=== PATIENT | male | born 2000 | race Caucasian/White ===

== ENCOUNTER 2021-02-18 08:30 | Outpatient (CLI) | payer OTHER | END 2021-02-18 08:31 | disposition home or self-care (01) | LOC: CSHCT 08:30 | PROVIDERS: ATTEND Otolaryngology | DX: S09.20XA Traumatic rupture of unspecified ear drum, initial encounter (principal); H90.8 Mixed conductive and sensorineural hearing loss, unspecified; H74.92 Unspecified disorder of left middle ear and mastoid; S09.22XA Traumatic rupture of left ear drum, initial encounter; H73.892 Other specified disorders of tympanic membrane, left ear | CPT/HCPCS: 70480 ==

== ENCOUNTER 2021-03-20 15:12 | Outpatient (CLI) | payer OTHER ==
[2021-03-21 12:15] LABS: SARS-CoV-2 PCR by NAA Not Detected (NotDetected)
== END 2021-03-20 15:13 | disposition home or self-care (01) ==
LOC: CSHLAB 15:12
PROVIDERS: ATTEND Otolaryngology Plastic Surgery within the Head & Neck
DX: Z20.822 Contact with and (suspected) exposure to COVID-19 (principal); J35.2 Hypertrophy of adenoids; S09.20XA Traumatic rupture of unspecified ear drum, initial encounter; H90.71 Mixed conductive and sensorineural hearing loss, unilateral, right ear, with unrestricted hearing on the contralateral side
CPT/HCPCS: U0003; U0005

== ENCOUNTER 2021-03-25 08:11 | Day surgery (SDC) | payer OTHER ==
[2021-03-21 13:35] VITALS: BMI 40.1
[2021-03-25] MEDS ORDERED: Lidocaine 1% MPF 2 ML VIAL ONE (09:33)
[2021-03-25] MEDS ORDERED: PROPOFOL 20 ML ONE ×2 (12:33→13:14)
[2021-03-25] MEDS ORDERED: Ondansetron PF 4 MG/2 ML Vial ONE (12:34)
[2021-03-25] MEDS ORDERED: Lidocaine 4% PF 5 ML AMP ONE (12:34)
[2021-03-25] MEDS ORDERED: Lidocaine 2% PF 5 ML VIAL ONE (12:34)
[2021-03-25] MEDS ORDERED: Rocuronium Bromide 10 MG/ML (10ML VIAL) ONE (12:34)
[2021-03-25] MEDS ORDERED: Fentanyl 100 MCG/2 ML VIAL ONE ×3 (12:34→15:13)
[2021-03-25] MEDS ORDERED: Dexamethasone 20 MG/5 ML VIAL ONE (12:34)
[2021-03-25] MEDS ORDERED: oFLOXacin 0.3% Opth 5 ML BOT ONE (12:40)
[2021-03-25] MEDS ORDERED: Mupirocin 2% Ointment 22 GM Tube ONE (12:40)
[2021-03-25] MEDS ORDERED: EPINEPHrine 1 MG/ML AMP ONE (12:40)
[2021-03-25] MEDS ORDERED: Succinylcholine 200 MG/10 ml SYRINGE FS ONE (12:45)
[2021-03-25] MEDS ORDERED: CEFAZOLIN 1 GM VIAL ONE (12:50)
== END 2021-03-25 16:35 | disposition home or self-care (01) ==
LOC: CSHSDC 08:11
PROVIDERS: ATTEND Otolaryngology Plastic Surgery within the Head & Neck
PROC: 0CTQ0ZZ Resection of Adenoids, Open Approach (ICD-10-PCS; principal; 2021-03-25)
DX: S09.22XA Traumatic rupture of left ear drum, initial encounter (principal); H90.72 Mixed conductive and sensorineural hearing loss, unilateral, left ear, with unrestricted hearing on the contralateral side; J35.2 Hypertrophy of adenoids
CPT/HCPCS: C1713; J0171; J0690; J1100; J2001; J2405; J2704; J3010

== ENCOUNTER 2021-10-03 10:21 | Outpatient (CLI) | payer OTHER | END 2021-10-03 10:22 | disposition home or self-care (01) | LOC: CSHLAB 10:21 | PROVIDERS: ATTEND Otolaryngology Plastic Surgery within the Head & Neck | DX: U07.1 COVID-19 (principal); H72.91 Unspecified perforation of tympanic membrane, right ear | CPT/HCPCS: U0003; U0005 ==

== ENCOUNTER 2021-11-18 07:37 | Day surgery (SDC) | payer OTHER ==
[2021-10-02 11:22] VITALS: BMI 41.3
[2021-11-18] MEDS ORDERED: Lidocaine 1% MPF 2 ML VIAL ONE (08:30)
[2021-11-18] MEDS ORDERED: Dexmedetomidine 200 MCG/2 ML VIAL ONE (09:26)
[2021-11-18] MEDS ORDERED: PROPOFOL 60 ML ONE (09:27)
[2021-11-18] MEDS ORDERED: Midazolam HCl 2 mg/2 ml Vial ONE (09:27)
[2021-11-18] MEDS ORDERED: Fentanyl 250 MCG/5 ML VIAL ONE (09:27)
[2021-11-18] MEDS ORDERED: Mupirocin 2% Ointment 22 GM Tube ONE (09:28)
[2021-11-18] MEDS ORDERED: Ondansetron PF 4 MG/2 ML Vial ONE ×2 (09:28→10:06)
[2021-11-18] MEDS ORDERED: EPINEPHrine 1 MG/ML AMP ONE (09:28)
[2021-11-18] MEDS ORDERED: Dexamethasone 20 MG/5 ML VIAL ONE (09:28)
[2021-11-18] MEDS ORDERED: Lidocaine 1% PF 5 ML VIAL ONE (09:28)
[2021-11-18] MEDS ORDERED: oFLOXacin 0.3% Opth 5 ML BOT ONE ×2 (09:28→10:35)
[2021-11-18] MEDS ORDERED: Rocuronium Bromide 10 MG/ML (10ML VIAL) ONE (09:28)
[2021-11-18] MEDS ORDERED: CEFAZOLIN 1 GM VIAL ONE (09:28)
[2021-11-18] MEDS ORDERED: PROPOFOL 20 ML ONE (09:31)
[2021-11-18] MEDS ORDERED: PHENYLEPHRINE-NS 100 MCG/ML 10 ML SYRINGE ONE (09:57)
== END 2021-11-18 11:53 | disposition home or self-care (01) ==
LOC: CSHSDC 07:37
PROVIDERS: ATTEND Otolaryngology Plastic Surgery within the Head & Neck
PROC: 09U707Z Supplement Right Tympanic Membrane with Autologous Tissue Substitute, Open Approach (ICD-10-PCS; principal; 2021-11-18)
DX: H72.91 Unspecified perforation of tympanic membrane, right ear (principal); H90.71 Mixed conductive and sensorineural hearing loss, unilateral, right ear, with unrestricted hearing on the contralateral side; U07.1 COVID-19; Z79.2 Long term (current) use of antibiotics; Z98.890 Other specified postprocedural states
CPT/HCPCS: C1713; J0171; J0690; J1100; J2250; J2405; J2704; J3010